=== PATIENT | male | born 1940 | race Caucasian/White ===

== ENCOUNTER 2016-12-30 18:12 | Observation (INO) | payer MEDICARE ==
[~2016-12-30] VITALS: Ht 188 cm; Wt 74.8 kg
[2016-12-30] MEDS: 0.9% Sodium Chloride 1,000 ML IV ONE (00:10)
[~2016-12-30 18:12] MED LIST: ASPI325T32 PO; BLUE500T PO; BRIM5DRO BOTH_EYES; CYAN100017 SL; LATA2.5D6 OP; LORA-305 PO; OMEP20TA24 PO; PREN1TAB25 PO; TAMS0.4C29 PO; [UNRECOGNIZED DRUG - CODE] TOP; [UNRECOGNIZED DRUG - OTHER] PO
[2016-12-30 18:26] VITALS: BP 124/62; PULSE 94; RESP 14; O2SAT 99
--- NOTE | 2016-12-30 18:39 | ED.REPORT ---
HPI-General Illness Date of Service Dec 30, 2016 ED Provider: Alfredo Cazares MD A 76 year old male with a history of neuropathy, hypertension, NSTEMI, anemia, bladder outlet obstruction, alcohol abuse, glaucoma and subdural hematoma drainage in 2011 due to fall-related head trauma is brought to the ED via EMS due to a ground level fall. The pt "drank three beers" today and states that he "stood up too fast," which resulted in the fall. He also felt very weak at that time and was too weak to stand after the fall. The pt denies hitting his head or loss of consciousness. He believes that his tetanus is up to date and denies recent head injury. His initial alcohol level in the ED is 0.239. Nursing Notes Stated Complaint: GENERALIZED WEAKNESS Chief Complaint: Multiple Trauma/Fall Nursing Notes Reviewed: Yes Allergies: Coded Allergies: No Known Allergies (Verified , 08/05/15) Scheduled ([elvia support]) 2 TABLET PO QAM Aspirin (Aspirin) 325 Mg Tablet 325 MG PO BID Blue-Green Algae (Spirulina) 500 Mg Tablet 500 MG PO DAILY Brimonidine Tartrate/Timolol (Combigan Eye Drops) 5 Ml Drops 1 DRP BOTH_EYES BID Cyanocobalamin (Vitamin B-12) (Vitamin B-12) 1,000 Mcg Tab.subl 1,000 MCG SL DAILY Latanoprost (Latanoprost) 2.5 Ml Drops 1 GTT OP HS Omeprazole Magnesium (Prilosec Otc) 20 Mg Tablet.dr 20 MG PO DAILY Vit#96/Ferrous Fum/FA ( Tablet) 1 Each Tablet 1 TABLET PO DAILY Tamsulosin ER (Tamsulosin ER) 0.4 Mg Cap.er.24h 0.4 MG PO DAILY Testosterone (Testim) 5 Gm Gel..gram. 5 GM TOP DAILY Scheduled PRN Lorazepam (Ativan) 2 Mg Tablet 2 MG PO TID PRN PRN Withdrawal Symptoms General Time Seen by MD: 18:39 Chief Complaint Other (Fall) Hx Obtained From: Patient, EMS Arrived By: Ambulance Sudden in Onset?: Yes Onset Occurred: 1 - 4 hours ago Symptom Duration: Since onset Recent Healthcare: No recent doctor visit, No recent hospitalization Similar Sx Previous: No Past Medical History Past Medical History Notes: PCP: Dr. Wilde Past Medical History Hypertension-but stopped meds, numbers have been low. Peripheral neuropathy Systemic yeast infection NSTEMI Neuropathy Enlarged prostate Subdural hematoma s/p fall related head trauma s/p bilateral subdural hematoma drainage at [facility] Mild gastritis, nodular gastric mucosa, gastric polyps and salmon-colored mucosa arising from the gastroesophageal junction suggestive of Caal's by EGD on 02/04/14. Two transverse colon polyps (removed with a hot snare), descending colon polyp (removed with a hot snare), two diminutive rectal polyps (removed with cold biopsy forceps), left-sided diverticulosis and large internal hemorrhoids by colonoscopy on 02/04/14. Glaucoma Bilat DVT s/p IVC filter placed on 03/25/14 acute severe sepsis secondary to UTI anemia septic encephalopathy bladder outlet obstruction Urinary candidiasis Past Surgical History Hiatal hernia repair, and repeat repair with mesh Inguinal hernia bilaterally repair Dental surgery Subdural hematoma s/p fall related head trauma s/p bilateral subdural hematoma drainage at [facility] Family History mom-peripheral neuropathy. Smoking History Former Smoker Social History Lives alone at home. Alcohol Use: 3-5 per day Drug Use: Denies drug use Ambulatory Status Walker Review of Systems fall Full Review of Systems Respiratory: Denies: Non-productive cough, Shortness of breath Cardiovascular: Denies: Chest pain GI: Denies: Abdominal pain, Vomiting Musculoskeletal: Denies: Back pain, Neck pain Skin: Denies Rash Neurologic: Denies: Change LOC Complete sys rev & neg: except as marked. Physical Exam Vital Signs Vital Signs Date Time Temp Pulse Resp B/P Pulse Ox O2 Delivery O2 Flow Rate FiO2 12/31/16 02:02 72 16 87/42 97 Room Air 12/31/16 00:30 82 16 114/78 100 Room Air 12/30/16 18:26 36.5 94 14 124/62 99 Room Air Initial VS: Reviewed General/Constitutional: Awake, Alert Head / Eyes: Atraumatic, Normocephalic, PERRL, EOMI ENT: Atraumatic, Airway patent, Mucous membranes moist Neck: Atraumatic, Supple, Full range of motion Respiratory / Chest: Atraumatic, Breath sounds NL, Breath sounds = bilat, No respiratory distress Cardiovascular: Heart rate NL, Regular rhythm, Heart sounds NL, No gallop, No murmurs, No rubs Abdomen: Atraumatic, Soft, Non-tender Back: Atraumatic, Full range of motion Upper Extremities Upper Extremity / MS: Full range of motion, Neurologic intact, Vascular intact small skin tear of right elbow good range of motion at the elbow Lower Extremity / Pelvis / MS: Full range of motion, Neurologic intact, Vascular intact blood between toes of the right foot partially avulsed first toenail no bony tenderness of right foot laceration on the flexor aspect of the flexor crease of the right fourth toe nail partially avulsed Skin: Color NL, No rash, Warm, Dry Neurologic: Oriented X3, Speech NL, No motor deficits, No sensory deficits Psychiatric: Affect NL, Mood NL Interpretation & Diagnostics Lab Results Interpretation Result Diagram: 12/31/16 0100 12/31/16 0100 Test 12/31/16 00:15 12/31/16 01:00 Urine Color Yellow (YELLOW) Urine Appearance Clear (CLEAR,HAZY) Urine pH 6.0 (5.0-8.0) Urine Specific Taylor <1.005 (1.003-1.035) Urine Protein Negativemg/dL (NEG,TRACE) Urine Glucose (UA) Negativemg/dL (NEGATIVE) Urine Ketones Negativemg/dL (NEGATIVE) Urine Occult Blood Trace (NEGATIVE) Urine Nitrite Negative (NEGATIVE) Urine Bilirubin Negative (NEGATIVE) Urine Urobilinogen Normalmg/dL (NORMAL) Urine Leukocyte Esterase Negative (NEGATIVE) Urine RBC 0-2/hpf (0-2) Urine WBC 0-5/hpf (0-5) Urine Epithelial Cells Few/hpf (NONE-MOD) Urine Crystals None seen (NONE SEEN) Urine Bacteria Few/hpf (NONE-FEW) Urine Hyaline Casts None/lpf (NONE) Urine Granular Casts None seen (NONE SEEN) Urine Waxy Casts None seen (NONE SEEN) Urine Red Blood Cell Casts None seen (NONE SEEN) Urine White Blood Cell Casts None seen (NONE SEEN) Urine Mucus None seen (None Seen) Urine Trichomonas None seen (NONE SEEN) Urine Yeast None (NONE SEEN) Urinalysis Comment None Urine Culture Reflexed Not indicated White Blood Count 4.4th/mm3 (3.8-10.1) Red Blood Count 3.79mil/mm3 (4.40-5.80) Hemoglobin 13.2g/dL (13.8-17.2) Hematocrit 36.4% (41.0-50.0) Mean Corpuscular Volume 96.0fL (81-100) Mean Corpuscular Hemoglobin 34.8pg (27.0-35.0) Mean Corpuscular Hemoglobin Concent 36.3% (32.0-37.0) Red Cell Distribution Width 14.0% (12.3-15.4) Platelet Count 130bil/L (150-400) Neutrophils (%) (Auto) 59.0% (40-74) Lymphocytes (%) (Auto) 24.8% (14-46) Monocytes (%) (Auto) 15.5% (4-12) Eosinophils (%) (Auto) 0.2% (0-5) Basophils (%) (Auto) 0.5% (0-3) Sodium Level 136mEq/L (134-144) Potassium Level 4.2mEq/L (3.5-5.2) Chloride Level 98mEq/L (97-108) Carbon Dioxide Level 22mmol/L (18-29) Blood Urea Nitrogen 3mg/dL (8-27) Creatinine 0.69mg/dL (0.76-1.27) Estimat Glomerular Filtration Rate 119mL/min (>59) Glucose Level 86mg/dL (60-99) Calcium Level 8.0mg/dL (8.5-10.1) Magnesium Level 1.8mg/dL (1.6-2.6) Total Bilirubin 0.9mg/dL (0.0-1.2) Aspartate Amino Transf (AST/SGOT) 36U/L (0-50) Alanine Aminotransferase (ALT/SGPT) 17U/L (0-44) Alkaline Phosphatase 83U/L (25-160) Total Creatine Kinase 352U/L (21-232) Troponin T 0.010ug/L (0.0-0.011) Total Protein 6.3g/dL (6.4-8.4) Albumin 2.9g/dL (3.4-5.0) Hold Paz Top Tube Received (Received) Alcohols 190mg/dL (0-10) Lab Results Interpretation: initial alcohol: 0.239 ECG Interpretation ECG Interpretation: normal sinus rhythm with a rate of 82 inferior infarct, old Time: 22:23 Interpreted by: ED physician X-Ray Chest Interpretation Chest Xray Interpretation: no acute findings Interpretation / Wet Read by: Wet read ED physician X-Ray Interpretation Xray Interpretation: IMPRESSION: No acute fracture. No osseous lesion. If clinical suspicion and/or symptoms persist, further assessment with repeat plainfilms, or advanced imaging (e.g., CT, MRI, or bone scan) may be helpful for further assessment. Dictated by: Serjio Magana M.D. on 12/30/2016 at 19:43 Approved by: Serjio Magana M.D. on 12/30/2016 at 19:43 X-Ray Ordered: Foot right Interpretation / Wet Read by: Interpret - Radiologist CT Head Interpretation Study: Head CT no contrast Interpretation / Wet Read by: Wet read ED physician NL CT Head Findings: No acute disease Procedures Laceration Management Laceration Management: partially avulsed nail is removed Time: 22:27 Procedure Performed by: ED physician Consent / Setup / Site Prep: Informed consent provided, Consent from patient , Time-out performed, Hand hygiene observed, Stand sterile technique Location of Wound: right fourth toe Wound Length: 1 cm Local Anesthesia: Lidocaine 1% Digital Block: Yes Digit Involved: 4th toe right Wound Preparation: Betadine Debridement: None Irrigation: Copious Foreign Body Explore / Removal: Explored for foreign body Repair Skin: ___ O (4), Nylon # Sutures - Skin: 4 Suture Technique: Simple Post-Procedure / Complications: Antibiotic oint applied, Dressing applied, No complications, Condition improved Re-Eval/Medical Decision Med Decision/Clinical Course 76-year-old male who is an active alcoholic. He presents complaining of a ground-level fall related to generalized weakness earlier today. No evidence of any head injury although I note a history of a previous craniotomy for intracranial hemorrhage. He is noted to have a small laceration on the right fourth toe which was sutured. The baseline of neuropathy involving his lower extremities so he is nearly a sensate in the lower extremities. Following repair of laceration and x-ray, ambulation was attempted the patient was unable. He does not have a fever or chest pain, do not find evidence for an acute infectious process, myocardial infarction, major electrolyte abnormality. He is intoxicated however he admits using alcohol chronically and his level of intoxication does not seem unusual for him and clinically he is alert and oriented with clear speech. Mild elevation of CK. We will admit to the hospitalist service for further evaluation and care, will need a physical therapy evaluation I suspect. No bony tenderness of the right foot but x-ray is ordered due to neuropathy. Time of Eval: 20:07 Patient Status: Condition improved Re-Evaluation/Progress Note: Pt rechecked, who is comfortable. The need for laceration management is discussed. Time of Eval: 22:27 Patient Status: Condition improved Re-Evaluation/Progress Note: Pt rechecked and laceration management is performed without complication. Consultation : Referral / Consult Name: Antonio Coy MD Consulted With: Hospitalist Call Returned at: 02:10 Special Population Paraprofessional: Agrees with eval, Agrees with plan, Accepts admit Note: Spoke with Dr. Coy, hospitalist, regarding pt's case. Dr. Coy agrees with the evaluation and agrees to admit the pt. Counseled Regarding: Diagnosis, Lab results, Need for admission Discharge & Departure Primary Impression: Generalized weakness Additional Impressions: Alcohol intoxication Complication of substance-induced condition: uncomplicated Qualified Code: F10.120 - Alcohol abuse with intoxication, uncomplicated Foot laceration Encounter type: initial encounter Laterality: right Qualified Code: S91.311A - Laceration without foreign body, right foot, initial encounter Disposition: ADMITTED TO HOSPITAL Discharge Condition All VS Reviewed: Yes Condition: Stable Referrals: Saqib Wheatley DO (PCP) Amada Wilde MD Scribe Attestation Portions of this note were transcribed by Ya Laureano. I, Dr. Cazares personally performed the history, physical exam and medical decision-making; I reviewed and confirmed the accuracy of the information in the transcribed note. copies to: Amada Wilde MD; Saqib Wheatley DO Slack, Donald L MD Dec 30, 2016 18:39 YA LAUREANO Dec 30, 2016 19:10
--- NOTE | 2016-12-30 19:45 | DRSVH ---
PROCEDURE: X-RAY RIGHT FOOT COMPLETE, MINIMUM THREE VIEWS ([id number]) INDICATIONS: R foot injury in fall TECHNIQUE: 3 views of the foot were acquired. COMPARISON: [facility], , FOOT 2V RIGHT, 04/01/2016, 19:01. FINDINGS: Bones: No fractures or dislocations. No suspicious bony lesions. Periarticular osteophyte formatio n and joint space narrowing at the first metatarsal phalangeal joint is present. Soft tissues: No tibiotalar joint effusion. Achilles tendon appears normal. IMPRESSION: No acute fracture. No osseous lesion. If clinical suspicion and/or symptoms persist, fur ther assessment with repeat plainfilms, or advanced imaging (e.g., CT, MRI, or bone scan) may be help ful for further assessment. Dictated by: Serjio Magana M.D. on 12/30/2016 at 19:43 Approved by: Serjio Magana M.D. on 12/30/2016 at 19:43
[2016-12-30] MEDS ORDERED: Ondansetron 2 mg/mL 2 mL Inj IV PRN (23:15)
[2016-12-31] VITALS (10 sets, daily range): BP systolic 87–132; BP diastolic 42–84; PULSE 66–84; RESP 12–18; O2SAT 96–100
[2016-12-31] MEDS: 0.9% Sodium Chloride 1,000 ML IV ONE (00:10)
[2016-12-31 00:42] LABS: APPEARANCE,URINE CLEAR (CLEAR,HAZY); COLOR,URINE YELLOW (YELLOW); OCCULT BLOOD,URINE TRACE (NEGATIVE); UROBILINOGEN,URINE NORMAL (NORMAL)
[2016-12-31 01:15] LABS: BASOPHILS % (AUTO) 0.5 % (0-3); EOSINOPHILS % (AUTO) 0.2 % (0-5); MONOCYTES % (AUTO) 15.5 % (4-12); Mean Corpuscular Hemoglobin 34.8 pg (27.0-35.0); Platelet Count 130 bil/L (150-400)
[2016-12-31 01:59] LABS: Magnesium 1.8 mg/dL (1.6-2.6); TROPONIN T 0.01 ug/L (0.0-0.011)
--- NOTE | 2016-12-31 02:49 | PCM.HPMED ---
Subjective Date of Service Dec 31, 2016 Primary Provider: Admitting Physician: Primary Care Physician: Saqib Wheatley DO Attending Physician: Chief Complaint: Weakness History of Present Illness: 76-year-old male with a history of neuropathy, hypertension, and STEMI, subdural hematoma in 2011, and alcohol abuse who presents emergency department due to ground-level fall with head trauma while inebriated. Patient states that this fall occurred after rising from seated position after he drank 3 beers. He felt lightheaded and dizzy immediately prior to the fall but states he did not lose consciousness. During this episode the patient also states that he felt profoundly weak, especially in his legs. He denies chest pain, racing heartbeat, shortness of breath, diplopia, abdominal pain, change in bowel or bladder habits. Patient states that he has been drinking a sixpack for a number of years but tonight only had 3 beers. He states he is no longer withdrawal has ever had a seizure. Emergency department the patient's alcohol level was 239, with lab work indicating a blood level of 190. 2011 the patient had a subdural hematoma related to head trauma secondary to a ground-level fall which had to be drained at [facility]. Review of Systems: Complete review of systems performed; pertinent positives and negatives per history of present illness, all other systems reviewed and are negative Allergies Coded Allergies: No Known Allergies (Verified , 08/05/15) Home Medications Aspirin (Aspirin) 325 Mg Tablet 325 MG PO BID Blue-Green Algae (Spirulina) 500 Mg Tablet 500 MG PO DAILY Brimonidine Tartrate/Timolol (Combigan Eye Drops) 5 Ml Drops 1 DRP BOTH_EYES BID Cyanocobalamin (Vitamin B-12) (Vitamin B-12) 1,000 Mcg Tab.subl 1,000 MCG SL DAILY Latanoprost (Latanoprost) 2.5 Ml Drops 1 GTT OP HS Omeprazole Magnesium (Prilosec Otc) 20 Mg Tablet.dr 20 MG PO DAILY Vit#96/Ferrous Fum/FA ( Tablet) 1 Each Tablet 1 TABLET PO DAILY Tamsulosin ER (Tamsulosin ER) 0.4 Mg Cap.er.24h 0.4 MG PO DAILY Testosterone (Testim) 5 Gm Gel..gram. 5 GM TOP DAILY Lorazepam (Ativan) 2 Mg Tablet 2 MG PO TID PRN PRN Withdrawal Symptoms PMH Hypertension-but stopped meds, numbers have been low. Peripheral neuropathy Systemic yeast infection NSTEMI Neuropathy Enlarged prostate Subdural hematoma s/p fall related head trauma s/p bilateral subdural hematoma drainage at [facility] Mild gastritis, nodular gastric mucosa, gastric polyps and salmon-colored mucosa arising from the gastroesophageal junction suggestive of Caal's by EGD on 02/04/14. Two transverse colon polyps (removed with a hot snare), descending colon polyp (removed with a hot snare), two diminutive rectal polyps (removed with cold biopsy forceps), left-sided diverticulosis and large internal hemorrhoids by colonoscopy on 02/04/14. Glaucoma Bilat DVT s/p IVC filter placed on 03/25/14 acute severe sepsis secondary to UTI anemia septic encephalopathy bladder outlet obstruction Urinary candidiasis Surgical History Hiatal hernia repair, and repeat repair with mesh Inguinal hernia bilaterally repair Dental surgery Subdural hematoma s/p fall related head trauma s/p bilateral drainage at [facility] Family History Father of presumed ND in his 60s and was alcoholic Mother after breaking both hips Social History Hx Alcohol Use: Yes (Current, long-standing alcohol abuse. 4-5 beers daily. Last use was today) Hx Substance Use: No Hx Tobacco Use: Yes Smoking Status: Former Smoker Living Arrangement: Alone Exam Vital Signs Vital Sign - Last Date Time Temp Pulse Resp B/P Pulse Ox O2 Delivery O2 Flow Rate FiO2 12/31/16 02:02 72 16 87/42 97 Room Air 12/30/16 18:26 36.5 Intake and Output 12/30/16 12/30/16 12/31/16 Cumulative From/Thru 15:00 23:00 07:00 12/30/16 18:26 - 12/31/16 00:10 Intake Total 1000 ml 1000 ml Balance 1000 ml 1000 ml Intake IV Total 1000 ml 1000 ml Exam General: Pleasant male, conversing well, no acute distress HEENT: PERRLA, EOMI, nonicteric, membranes moist Lymph: No lymphadenopathy Cardio: Regular rate and rhythm no murmurs rubs or gallops Respiratory: CTA bilaterally, no wheezes, no crackles Abdomen: Soft, positive bowel sounds, nontender, nondistended Extremities:Moderate edema in right ankle without erythema or pain; no edema on left, 5/5 strength, sensation intact Psych: Appropriate mood and affect Neuro: CN II through XII grossly intact, sensation intact throughout Skin: No rash, no pulmonary erythema, no telangiectasias Lab and Diagnostics Result Diagram: 12/31/16 01012/31/16 0100 X-Rays, CTs and MRIs Foot x-ray IMPRESSION: No acute fracture. No osseous lesion. If clinical suspicion and/or symptoms persist, further assessment with repeat plainfilms, or advanced imaging (e.g., CT, MRI, or bone scan) may be helpful for further assessment. Dictated by: Serjio Magana M.D. on 12/30/2016 at 19:43 Chest x-ray: Read pending Assessment & Plan 76-year-old male with a history of alcohol dependence who presents emergency department after suffering a ground-level fall after rising from a seated position. Ground-level fall with head trauma secondary to orthostatics and alcohol; present on admission; ongoing -Patient's had a history of orthostatic hypotension has been counseled and how to change physicians -Previous subdural hematoma from [facility] with head trauma -Patient drinks a sixpack of beer a day and only had 3 today with a blood alcohol level of 190 -CK of 352 -Brain CT currently pending -Neurologically intact -Nurse to perform Orthostatics -Neuro checks every 4 hours -Foot x-ray r/o fx Alcohol dependence; present admission; ongoing -Patient drinks sixpack of beer a day -Hypoalbuminemia but normal liver function tests -Banana bag and 100 mg thiamine -Monitor withdrawal and initiate see what appropriate -hatchery worker referral -It appears the patient has a standing lorazepam prescription in case of withdrawal Mild, likely chronic, anemia and thrombocytopenia; present on admission; ongoing -Likely due to alcohol induced hepatic injury or possibly bone marrow suppression although this less likely -Previously reported anemia suggesting chronic -B12/folate and iron studies Disposition: Patient is being admitted to inpatient status with expected length of stay greater than two midnights due to to severity of presentation, duration of treatment, and risks of adverse events disposition Pain Evaluation: Adequate Pain Control GI Prophylaxis: H2 robbie VTE Prophylaxis Indicated: Contraindicated VTE Mechanical Devices: Intermittant Pneumatic CD Resuscitation Status: CPR: Attempt Resuscitation Attending Statement The patient was seen and examined together with Dr. Tello on 12/31 and I agree with the history, exam and plan as outlined in the note above. Bruno Tello DO Dec 31, 2016 02:49 Antonio Coy MD Dec 31, 2016 19:34
[2016-12-31] MEDS ORDERED: Ondansetron 2 mg/mL 2 mL Inj IVPUSH PRN ×2 (03:45→04:20)
[2016-12-31] MEDS ORDERED: Alum-Mag Hydrox-Simeth 30 mL Suspension PO PRN ×2 (03:45→04:20)
[2016-12-31] MEDS ORDERED: Thiamine Inj 200 MG in Dextrose 5% 50 ML IV ONE (04:20)
[2016-12-31] MEDS ORDERED: Thiamine Inj 100 MG, Folic Acid Inj 1 MG, Magnesium Sulfate 50% Inj 2 GM, Multivitamins... IV ONE ×5 (04:20)
[2016-12-31] MEDS ORDERED: Polyethylene Glycol (PEG) 17 Gm Powder PO PRN (04:20)
[2016-12-31] MEDS ORDERED: LOPE-147 PO (05:16)
[2016-12-31] MEDS ORDERED: NAPR220C11 PO (05:16)
[2016-12-31] MEDS: 0.9% Sodium Chloride 1,000 ML IV SCH ×2 (05:28→18:23)
--- NOTE | 2016-12-31 06:24 | DRSVH ---
PROCEDURE: X-RAY CHEST ONE VIEW, PORTABLE ([id number]) INDICATIONS: 76-year-old male with generalized weakness for 2-3 days. TECHNIQUE: One view of the chest was acquired. COMPARISON: [facility], CR, CHEST 1 VIEW, 04/01/2016, 16:01. [facility], CR, CHEST 1 VIEW , 03/11/2016, 10:40. [facility], CR, XR CHEST 1VW (PORTABLE), 09/27/2015, 9:12. FINDINGS: Surgical changes and devices: None. Lungs and pleura: No pleural effusions or pneumothorax. Lungs are clear. Mediastinum: Mediastinal contours appear normal. Heart size is normal. There is aortic atheroscler osis. Bones and chest wall: No suspicious bony lesions. Overlying soft tissues appear unremarkable. IMPRESSION: No acute cardiopulmonary disease. Dictated by: Tae Remy M.D. on 12/31/2016 at 6:21 Approved by: Tae Remy M.D. on 12/31/2016 at 6:22
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
[2016-12-31 06:52] LABS: BASOPHILS % (AUTO) 0.5 % (0-3); EOSINOPHILS % (AUTO) 0.3 % (0-5); MONOCYTES % (AUTO) 15.3 % (4-12); Mean Corpuscular Hemoglobin 34.9 pg (27.0-35.0); Mean Corpuscular Volume 97.1 fL (81-100); NEUTROPHILS % (AUTO) 63.2 % (40-74); Platelet Count 125 bil/L (150-400)
--- NOTE | 2016-12-31 07:09 | DRSVH ---
PROCEDURE: CT BRAIN WITHOUT CONTRAST ([id number]) INDICATIONS: 76-year-old male with generalized weakness and prior head injury. TECHNIQUE: Noncontrast 4.5 mm thick angled axial sections acquired from the foramen magnum to the vertex, with c oronal reformats. COMPARISON: [facility], CT, CT BRAIN WO CON, 08/10/2015, 13:15. [facility], CT, CT BRAIN WO CON, 08/05/2015, 10:50. [facility], CT, CT BRAIN WO CON, 06/15/2015, 1:46. FINDINGS: Preliminary interpretation rendered by [facility]. Image quality: Excellent. CSF spaces: Basal cisterns are patent. No extra-axial fluid collections. The ventricles are symmet mali in size and shape. Brain: No intracranial bleeds or masses. There is mild cerebral volume loss for age, with resultant ventricular and sulcal prominence. There are mild periventricular and deep white matter chronic sma ll vessel ischemic changes. There is intracranial internal carotid artery atherosclerosis. Skull and face: Calvarium and visualized facial bones appear intact, without suspicious lesions. Farrukh ateral frontal calvarial rolan holes are again noted. Sinuses: Visualized sinuses and mastoids are clear. IMPRESSION: 1. No acute intracranial abnormalities. 2. Mild periventricular and deep white matter chronic small vessel ischemic change. No significant discrepancy with preliminary [facility] report. Dictated by: Tae Remy M.D. on 12/31/2016 at 7:02 Approved by: Tae Remy M.D. on 12/31/2016 at 7:05
[2016-12-31 08:06] LABS: Unsaturated Iron Binding < 16.0 ug/dL
--- NOTE | 2016-12-31 10:40 | NUR ---
Dressing change Dressing removed from R foot and changed. L foot cleaned and dressed. MD assessed, wound consult ordered. Pt tolerated well, reports decreased sensation bilaterally in feet. Pt educated regarding importance of wearing shoes whenever outside and to monitor plantar area of feet on a daily basis. Pt verbalized understanding. Call light in reach, will continue to monitor.
--- NOTE | 2016-12-31 16:00 | NUR ---
MICHAEL explained and signed. Copy of RODRIGUEZ given to pt.
--- NOTE | 2016-12-31 16:23 | NUR ---
Social Work-initial assessment/multidisciplinary rounds: Data:See initial assessment. Pt is a 76 y/o male who was admitted on 12/31/16 for generalized weakness per H&P. Pt's insurance is [facility] and PCP is Saqib Wheatley DO. EMR Reviewed. SW met with pt at bedside, SW role explained. Pt is alert and oriented x3. Pt resides at home in a RV where he remains independent with ADLS. Pt uses a fww at baseline and drives. Pt has no HH history, but has been to [facility]. Pt has no skilled nursing care insurance or VA benefits. SW discussed DPOA/ advanced directive, pt confirms he has the paperwork, but has not completed this. No concerns noted in morning rounds regarding pt's capacity for self care, per RN or MD.Pt may benefit from PT evaluation. SW provided pt with discharge planning checklist and encouraged pt to call with any questions, phone number provided. Pt reports that he may not be able to return to the RV park that he just moved into 2 days ago. SW asked pt where he had been prior to that RV park, pt confirms an RV park in [place]. SW asked if he could return to this park and pt feels like he would be able to. SW provided him with phone numbers for both RV carpenter to call. CD assessment completed( See alternative note). Pt states that he and his caregiver who has been residing with him for the last year got into an argument and she was arrested. Pt states he will pay for yellow cab to pick him up at discharge. SW will continue to follow. Assessment:Pt who is independent at baseline. Plan:Pt to discharge back to when medically stable via POV. CD assessment completed, Declining resources. Pt may benefit from PT evaluation prior to discharge. SW will continue to follow. NIRALI Basurto Addendum: 12/31/16 at 1628 by CARLOS OCAMPO Amended: Links added.
--- NOTE | 2016-12-31 16:28 | NUR ---
Social Work-CD assessment: Current Circumstances/Reason for Referral:Pt is a 76 y/o male who was admitted on 12/31/16 for generalized weakness per H&P. order received for CD assessment. SW met with pt at bedside to complete. History of Substance Use: Pt has been drinking a 6 pack of beer daily for over 30 years. Pt states he does not use any other substances. Pt occasionally will drink hard alcohol or wine, but mainly drinks beer. History of Treatment Programs: Pt has never been to treatment. History of Withdrawal Symptoms: shaking, vomiting Family History:Pt reports his father was an alcoholic History of Sobriety and Supports:Pt reports two different periods of sobriety. Once for 3 years and then once for 1.5 years. Pt states he made the decision to stop drinking and then started drinking again because he was bored. Pt is unable to identify any support in his life other than his friend Nisreen who recently just got arrested. Patients Perception of use: Pt does not believe that there are any problems from his drinking. Pt identifies himself as a social drinker and does not feel like he is an alcoholic. Pt states he drinks 6 beers over 12 hours and does not feel like he needs to drink and drinks slowly. Pt is not interested in any resources or stopping drinking at this time. Recommendations for referral and follow up: Pt to likely discharge back to . Pt is currently declining any CD resources and is not interested in stopping drinking. SW will continue to follow. NIRALI Basurto
--- NOTE | 2016-12-31 18:02 | NUR ---
Generalized weakness Pt rested quietly through out the day, no complains of increased pain, no falls. VSS, Pt very weak, unable to stand unassisted, tried to get up to used BSC and was not able to transfer self. CIWA = 4. IV fluids infusing. Pt concern that he was not able to work with PT today. Reassured pt bes t to gain strength before getting up with PT. Encouraged to consume adequate protein to allow for optimal healing and recovery. Pt verbalized understanding. Call light in reach, bed alarm in place.
[2017-01-01] VITALS (9 sets, daily range): BP systolic 114–148; BP diastolic 68–84; PULSE 60–85; RESP 16–18; O2SAT 98–99
[2017-01-01] MEDS: 0.9% Sodium Chloride 1,000 ML IV SCH ×2 (04:32→10:17)
--- NOTE | 2017-01-01 06:08 | NUR ---
NOC/Headache/Neck spasm pt is alert and oriented. No facial droop, or slurring of speech. Bilateral equal sap hana architect. Lower extremities are very weak and is very unsteady in getting up. Orthostatic VS unable to obtain due to safety concerns. Pt reports of neck spasm and headache which has been relieved with tylenol. Denies chest pain, sob, n/v or abd discomfort. IVF running as ordered. VSS and has been afebrile. Continuing care.
[2017-01-01 09:07] LABS: Vitamin B12 654 pg/mL (211-946)
[2017-01-01] MEDS: Thiamine Inj 100 MG in Dextrose 5% 50 ML IV SCH (10:17)
--- NOTE | 2017-01-01 11:04 | PCM.PNMED ---
Subjective Date of Service Jan 01, 2017 Subjective pt remained stable, out of WD, not agitated denied COX, reported very unsteady on standing, awaits PT eval Exam Vital Signs Vital Sign - Last Date Time Temp Pulse Resp B/P Pulse Ox O2 Delivery O2 Flow Rate FiO2 01/01/17 10:07 36.8 63 18 148/84 99 Room Air Intake and Output 12/31/16 12/31/16 01/01/17 Cumulative From/Thru 15:00 23:00 07:00 12/30/16 18:26 - 01/01/17 06:29 Intake Total 2634 ml 1860 ml 5494 ml Output Total 850 ml 350 ml 1200 ml Balance 1784 ml 1510 ml 4294 ml Intake Oral 711 ml 580 ml 1291 ml IV Total 1923 ml 1280 ml 4203 ml Output Urine Total 850 ml 350 ml 1200 ml # Bowel Movements 1 1 Exam NAD, comfortably laying down on the bed no JVD, MMM, no LAD RRR, nl s1, s2 no mrg CTAB, no w,c S,ND,NT,normoactive BS+ warm, no edema, pulses 2/2 IVs and Medications Medications Reviewed: Medications were reviewed in detail Lab and Diagnostics Result Diagram: 12/31/16 0620 01/01/17 0645 X-Rays, CTs and MRIs Foot x-ray IMPRESSION: No acute fracture. No osseous lesion. If clinical suspicion and/or symptoms persist, further assessment with repeat plainfilms, or advanced imaging (e.g., CT, MRI, or bone scan) may be helpful for further assessment. Dictated by: Serjio Magana M.D. on 12/30/2016 at 19:43 Chest x-ray: Read pending Assessment & Plan 76-year-old male with a history of alcohol dependence who presents emergency department after suffering a ground-level fall after rising from a seated position. Ground-level fall with head trauma secondary to orthostatics and alcohol; present on admission; ongoing, Patient's had a history of orthostatic hypotension has been counseled and how to change physicians, Previous subdural hematoma from GLF with head trauma. Patient drinks a sixpack of beer a day and only had 3 today with a blood alcohol level of 190. pt underwent brief course of WD, assessed for CD by SARA. Brain CT no acute findings -pt remained clinically stable, -awaits PT eval to opimize dispo left minor skin lacs on plantar surface at fifth toe, dressed by RN, FU with wound care upon d/c chronic, stable resolved Alcohol dependence; present admission; ongoing -CD assessment performed by SARA, Mild, likely chronic, anemia and thrombocytopenia; present on admission; ongoing -Likely due to alcohol induced hepatic injury or possibly bone marrow suppression although this less likely -Previously reported anemia suggesting chronic -B12/folate and iron studies Disposition: likely today or tomorrow based on PT eval GI Prophylaxis: H2 robbie VTE Mechanical Devices: Intermittant Pneumatic CD Resuscitation Status: CPR: Attempt Resuscitation Time spent 35min Wesly Flaherty MD Jan 01, 2017 11:04
--- NOTE | 2017-01-01 16:21 | NUR ---
FEET/PT/PLAN Patient dressing change on both feet, SW asked to have home health follow up at discharge. Wound care to evaluate Monday. PT in working with patient today stand at bedside, weakness due to inactivity, falls risk, CIWA 1. Plan, patient state he can move back into which is being moved to [place] today, concerns for self care, continued ETOH abuse, and wound foot care. Addendum: 01/01/17 at 1902 by KULDIP BOYD RN ORTHOSTATIC HYPO POSITIVE supine 157/80 HR 63, sitting 149/82, HR 63, standing 118/68.
--- NOTE | 2017-01-01 17:24 | NUR ---
Evaluation completed. Please go to "Notes" then click on "Assessments and Notes" (bottom left corner of screen). Then select appropriate discipline tab on top of screen.
[2017-01-02 00:45] VITALS: BP 105/61; PULSE 56; RESP 16; O2SAT 99
[2017-01-02] MEDS: 0.9% Sodium Chloride 1,000 ML IV SCH ×3 (01:27→21:18)
--- NOTE | 2017-01-02 05:10 | NUR ---
NOC/Headache Pt reports of having headache. Administered Tylenol PRN. HS meds administered as scheduled. IVF running as directed. Denies chest pain, sob, n/v or abd discomfort. Has been pleasant and cooperative with care. CIWA score of 4. Continuing to monitor.
--- NOTE | 2017-01-02 08:41 | PCM.PNMED ---
Subjective Date of Service Jan 02, 2017 Subjective pt was not withdrawling from Etoh, found to be very weak, PT recommended SNF pt agreed on SNF placement, was in [facility]. denied any other complaints, but often get emotional about his situation. Exam Vital Signs Vital Sign - Last Date Time Temp Pulse Resp B/P Pulse Ox O2 Delivery O2 Flow Rate FiO2 01/02/17 00:45 37.0 56 16 105/61 99 Room Air Intake and Output 01/01/17 01/01/17 01/02/17 Cumulative From/Thru 15:00 23:00 07:00 12/30/16 18:26 - 01/02/17 00:30 Intake Total 2208 ml 7702 ml Output Total 725 ml 1925 ml Balance 1483 ml 5777 ml Intake Oral 1218 ml 2509 ml IV Total 990 ml 5193 ml Output Urine Total 725 ml 1925 ml # Bowel Movements 1 2 Exam NAD, comfortably laying down on the bed no JVD, MMM, no LAD RRR, nl s1, s2 no mrg CTAB, no w,c S,ND,NT,normoactive BS+ warm, no edema, pulses 2/2 IVs and Medications Medications Reviewed: Medications were reviewed in detail Lab and Diagnostics Result Diagram: 12/31/16 0620 01/01/17 0645 X-Rays, CTs and MRIs Foot x-ray IMPRESSION: No acute fracture. No osseous lesion. If clinical suspicion and/or symptoms persist, further assessment with repeat plainfilms, or advanced imaging (e.g., CT, MRI, or bone scan) may be helpful for further assessment. Dictated by: Serjio Magana M.D. on 12/30/2016 at 19:43 Chest x-ray: Read pending Assessment & Plan 76-year-old male with a history of alcohol dependence who presents emergency department after suffering a ground-level fall after rising from a seated position. Ground-level fall with head trauma secondary to orthostatics and alcohol; present on admission; ongoing, Patient's had a history of orthostatic hypotension has been counseled and how to change physicians, Previous subdural hematoma from GLF with head trauma. Patient drinks a sixpack of beer a day and only had 3 today with a blood alcohol level of 190. pt underwent brief course of WD, assessed for CD by SW. Brain CT no acute findings -pt remained clinically stable, -continue PT left minor skin lacs on plantar surface at fifth toe, dressed by RN, awaits wound care eval today chronic, stable resolved Alcohol dependence; present admission; ongoing -CD assessment performed by SARA, Mild, likely chronic, anemia and thrombocytopenia; present on admission; ongoing -Likely due to alcohol induced hepatic injury or possibly bone marrow suppression although this less likely -Previously reported anemia suggesting chronic -B12/folate and iron studies Disposition: likely today or tomorrow to [facility] GI Prophylaxis: H2 robbie VTE Mechanical Devices: Intermittant Pneumatic CD Resuscitation Status: CPR: Attempt Resuscitation Time spent 35min Wesly Flaherty MD Jan 02, 2017 08:41
[2017-01-02] MEDS: Thiamine Inj 100 MG in Dextrose 5% 50 ML IV SCH (09:17)
[2017-01-02 09:18] VITALS: PULSE 87
[2017-01-02 10:05] VITALS: BP 123/75; PULSE 64; RESP 18; O2SAT 98
[2017-01-02 13:17] VITALS: BP 140/81; PULSE 91; RESP 18; O2SAT 99
--- NOTE | 2017-01-02 13:37 | NUR ---
Inpatient Wound Nurse Patient seen for wounds to BLE. R foot 4th toe dorsal sulcus noted clean and dry with intact sutures. No dressing required as no drainage is noted. L foot 2nd toe medial plane 1 cm L x 1 cm W laceration, dark red, dry, crusted, no drainage. L foot 3rd toe medial plane 2 cm L x 1 cm W laceration, dark red, dry, crusted, no drainage. Patient stated that he sustained these "a few days ago" walking in his motor home without socks and jammed his foot into something. He had no meaningful contribution to origin of these wounds or the wound on his plantar/medial surface L great toe which is noted with 1 cm L x 1 cm W intact crust, no drainage, no erythema. Patient stated that he had been receiving care at [facility] for this wound and was told that he no longer required care due to wound resolution. Although wound is closed it is at risk for reopening because it is a pressure point. This wound was covered with a bordered Mepilex cut in half. All other nails and skin are intact. Patient has obviously been negligent with foot care and requires nail trimming. He stated that when he is discharged to SNF, he will request nail care. If sutures in R foot 4th toe dorsal sulcus are not dissolvable, he should be seen at outpatient Wound Center. Patient was instructed to wear shoes at all times when out of bed.
[2017-01-02 20:25] VITALS: BP 144/87; PULSE 69; RESP 18; O2SAT 100
[2017-01-03 00:20] VITALS: BP 126/72; PULSE 61; RESP 18; O2SAT 97
--- NOTE | 2017-01-03 05:04 | NUR ---
PT ACTIVITY Pt has not been observed w/ OOB activity this shift. Pt has been using urinal independently in bed. Pt denies pain. Pt has watched TV and slept intermittently during the shift. Continue to monitor. Call light in reach. Bed alarm on. Intentional rounding.
[2017-01-03 05:15] VITALS: BP 119/69; PULSE 58; RESP 18; O2SAT 97
[2017-01-03] MEDS: 0.9% Sodium Chloride 1,000 ML IV SCH ×2 (07:27→12:04)
[2017-01-03] MEDS: Thiamine Inj 100 MG in Dextrose 5% 50 ML IV SCH (08:23)
--- NOTE | 2017-01-03 11:44 | NUR ---
POST HOSPITAL FOLLOW UP: Scheduled res clinic appointment for 01/04/17 check in at 10AM for 1010 appointment with and they are aware patient is needing Home Health follow up. Updated A[employer]ISCIENCE TECH[employer]OLOGY INSTRUCTOR
--- NOTE | 2017-01-03 11:58 | PCM.DIMED ---
Discharge Instructions Date of Service Jan 03, 2017 Dates of Hospitalization Dec 31, 2016 at 02:48 Discharge Diagnosis Discharge Diagnosis acute dx Ground-level fall with head trauma secondary to orthosis and alcohol abuse Diet Discharge Diet: No restrictions Activity Discharge Activity: Home Health Phyical Therapy Patient Instructions Patient Instructions You were hospitalized after fall and alcohol intoxication. You were recommended 24hour supervision given your unsteady gait, however, given your improvement, you were released to home with HH, Physical therapy. Please note that you were arranged to see new primary doctor tomorrow 01/04 at 10am. Please follow up accordingly Follow-up Provider: [facility] Follow-up with PCP in: 1 week Wesly Flaherty MD Jan 03, 2017 11:58
[2017-01-03 12:16] VITALS: BP 158/86; PULSE 79; RESP 18; O2SAT 99
--- NOTE | 2017-01-03 12:18 | NUR ---
Social Work-discharge: Data:EMR reviewed. Pt is on day 3 of hospitalization for generalized weakness and Alcohols withdrawal per H&P. Pt is medically stable for discharge. PT has cleared pt for home with HH services, recommending 24/7 supervision. order received for HH. SW followed up with pt to discuss, SW role explained. Pt states he will not have someone to stay with him in his motorhome, but he his two neighbors will check on him regularly and provide supervision. SW updated MD and MD agreeable to discharge pt. SW provided pt with HH choice list, pt has no agency preference,SW referred to rotating calendar and made referral to [facility] for PT, access given. SW updated Osorio Stevenson with [facility] of discharge and provided him with f2F and orders. PCP appointment arranged for tomorrow at 1000 information provided to the pt. SW arranged private pay taxi for pt to go back home today at 1300. Pt's friends to help pt move his motorhome to other RV park today. Pt confirms he has fww at home. Pt continues to decline CD resources. All updated and agreeable to plan. Assessment:Pt who would benefit from HH. Plan:Pt to discharge home today via private pay taxi. Pt has friends to provide supervision and check on him regularly at home. Referral made to [facility] for PT F2F and orders given. All updated and agreeable to plan. NIRALI Basurto
--- NOTE | 2017-01-03 13:12 | NUR ---
Discharge Pt d/cd home via yellow cab at 1305 by an aide on a wc. Pt denied pain. IV d/cd prior to leaving. All personal belongings left with pt. Discharge teaching provided, pt denied having questions. Emphasis made on f/u with Residency clinic on 01/04
--- NOTE | 2017-01-03 16:09 | PCM.DC.MED ---
Discharge Summary Date of Service Jan 03, 2017 Dates of Hospitalization Date of Hospital Admission Dec 31, 2016 at 02:48 Date of Discharge: Jan 03, 2017 Providers: Admitting Physician: Antonio Coy MD Primary Care Physician: Saqib Wheatley DO Attending Physician: Wesly Flaherty MD Diagnosis at Time of Discharge Diagnosis at Time of Discharge acute dx Ground-level fall with head trauma secondary to orthosis and alcohol abuse Procedures XRay, CTs & MRIs Foot x-ray IMPRESSION: No acute fracture. No osseous lesion. If clinical suspicion and/or symptoms persist, further assessment with repeat plainfilms, or advanced imaging (e.g., CT, MRI, or bone scan) may be helpful for further assessment. Dictated by: Serjio Magana M.D. on 12/30/2016 at 19:43 Chest x-ray: Read pending Brief History HPI obtained by Dr. Coy on 12.31 76-year-old male with a history of neuropathy, hypertension, and STEMI, subdural hematoma in 2011, and alcohol abuse who presents emergency department due to ground-level fall with head trauma while inebriated. Patient states that this fall occurred after rising from seated position after he drank 3 beers. He felt lightheaded and dizzy immediately prior to the fall but states he did not lose consciousness. During this episode the patient also states that he felt profoundly weak, especially in his legs. He denies chest pain, racing heartbeat, shortness of breath, diplopia, abdominal pain, change in bowel or bladder habits. Patient states that he has been drinking a sixpack for a number of years but tonight only had 3 beers. He states he is no longer withdrawal has ever had a seizure. Emergency department the patient's alcohol level was 239, with lab work indicating a blood level of 190. 2011 the patient had a subdural hematoma related to head trauma secondary to a ground-level fall which had to be drained at [facility]. Hospital Course 76-year-old male with a history of alcohol dependence who presents emergency department after suffering a ground-level fall after rising from a seated position. Patient was admitted after ground-level fall associated with altered drinking, orthostatic hypotension. Patient noted to have underlying chronic neuropathy, unsteady gait, which was also exacerbated by alcohol abuse. Patient underwent brief course of alcohol withdrawal. Otherwise patient did not have any signs of DT. Although PT recommend SNF initially, or home with 24 7 supervision, given his rapid progression, patient deemed safe to discharge to home with HH, PT, additional care was also encouraged from his neighbor(in park) in close proximity. Pt was strongly encouraged eoth cessation. Ground-level fall with head trauma secondary to orthostatics and alcohol; present on admission; ongoing, Patient's had a history of orthostatic hypotension has been counseled and how to change physicians, Previous subdural hematoma from GLF with head trauma. Patient drinks a sixpack of beer a day and only had 3 today with a blood alcohol level of 190. pt underwent brief course of WD, assessed for CD by SW. Brain CT no acute findings -pt remained clinically stable, -continue PT left minor skin lacs on plantar surface at fifth toe, dressed by RN, awaits wound care eval today chronic, stable resolved Alcohol dependence; present admission; ongoing -CD assessment performed by SW, Mild, likely chronic, anemia and thrombocytopenia; present on admission; ongoing -Likely due to alcohol induced hepatic injury or possibly bone marrow suppression although this less likely -Previously reported anemia suggesting chronic -B12/folate and iron studies Disposition: likely today or tomorrow to SNF Exam Vital Signs (Last) Date Time Temp Pulse Resp B/P Pulse Ox O2 Delivery O2 Flow Rate FiO2 01/03/17 12:59 Room Air 01/03/17 12:16 36.9 79 18 158/86 99 Exam Patient was examined on the day of discharge Test 12/31/16 00:15 12/31/16 01:00 12/31/16 06:20 01/01/17 06:45 Urine Color Yellow (YELLOW) Urine Appearance Clear (CLEAR,HAZY) Urine pH 6.0 (5.0-8.0) Urine Specific [place] <1.005 (1.003-1.035) Urine Protein Negativemg/dL (NEG,TRACE) Urine Glucose (UA) Negativemg/dL (NEGATIVE) Urine Ketones Negativemg/dL (NEGATIVE) Urine Occult Blood Trace (NEGATIVE) Urine Nitrite Negative (NEGATIVE) Urine Bilirubin Negative (NEGATIVE) Urine Urobilinogen Normalmg/dL (NORMAL) Urine Leukocyte Esterase Negative (NEGATIVE) Urine RBC 0-2/hpf (0-2) Urine WBC 0-5/hpf (0-5) Urine Epithelial Cells Few/hpf (NONE-MOD) Urine Crystals None seen (NONE SEEN) Urine Bacteria Few/hpf (NONE-FEW) Urine Hyaline Casts None/lpf (NONE) Urine Granular Casts None seen (NONE SEEN) Urine Waxy Casts None seen (NONE SEEN) Urine Red Blood Cell Casts None seen (NONE SEEN) Urine White Blood Cell Casts None seen (NONE SEEN) Urine Mucus None seen (None Seen) Urine Trichomonas None seen (NONE SEEN) Urine Yeast None (NONE SEEN) Urinalysis Comment None Urine Culture Reflexed Not indicated Total Creatine Kinase 352U/L (21-232) Troponin T 0.010ug/L (0.0-0.011) Hold Paz Top Tube Received (Received) Alcohols 190mg/dL (0-10) White Blood Count 3.7th/mm3 (3.8-10.1) Red Blood Count 3.50mil/mm3 (4.40-5.80) Hemoglobin 12.2g/dL (13.8-17.2) Hematocrit 34.0% (41.0-50.0) Mean Corpuscular Volume 97.1fL (81-100) Mean Corpuscular Hemoglobin 34.9pg (27.0-35.0) Mean Corpuscular Hemoglobin Concent 35.9% (32.0-37.0) Red Cell Distribution Width 14.2% (12.3-15.4) Platelet Count 125bil/L (150-400) Neutrophils (%) (Auto) 63.2% (40-74) Lymphocytes (%) (Auto) 20.7% (14-46) Monocytes (%) (Auto) 15.3% (4-12) Eosinophils (%) (Auto) 0.3% (0-5) Basophils (%) (Auto) 0.5% (0-3) Iron Level 146ug/dL (35-150) Total Iron Binding Capacity < 163ug/dL (250-450) Percent Iron Saturation < 90%sat (15-50) Unsaturated Iron Binding < 16.0ug/dL Vitamin B12 Level 654pg/mL (211-946) Folate > 19.9ng/mL (>3.0) Sodium Level 136mEq/L (134-144) Potassium Level 3.6mEq/L (3.5-5.2) Chloride Level 103mEq/L (97-108) Carbon Dioxide Level 20mmol/L (18-29) Blood Urea Nitrogen 3mg/dL (8-27) Creatinine 0.66mg/dL (0.76-1.27) Estimat Glomerular Filtration Rate 125mL/min (>59) Glucose Level 91mg/dL (60-99) Calcium Level 7.5mg/dL (8.5-10.1) Magnesium Level 2.0mg/dL (1.6-2.6) Total Bilirubin 2.1mg/dL (0.0-1.2) Aspartate Amino Transf (AST/SGOT) 26U/L (0-50) Alanine Aminotransferase (ALT/SGPT) 13U/L (0-44) Alkaline Phosphatase 76U/L (25-160) Total Protein 4.9g/dL (6.4-8.4) Albumin 2.3g/dL (3.4-5.0) Discharge Medications Discharge Medications Brimonidine Tartrate/Timolol (Combigan Eye Drops) 5 Ml Drops 1 DRP BOTH_EYES BID (Reported) Cyanocobalamin (Vitamin B-12) (Vitamin B-12) 1,000 Mcg Tab.subl 1,000 MCG SL DAILY (Reported) Latanoprost (Latanoprost) 2.5 Ml Drops 1 GTT OP HS (Reported) Omeprazole Magnesium (Prilosec Otc) 20 Mg Tablet.dr 20 MG PO DAILY (Reported) Vit#96/Ferrous Fum/FA ( Tablet) 1 Each Tablet 1 TABLET PO DAILY Prescribed by: ROBYN KEVIN, DO Miscellaneous Medications Loperamide HCl (Imodium A-D) 2 Mg Capsule 2 PO (Reported) Followup Plan Discharge Diet: No restrictions Discharge Activity: Home Health Phyical Therapy Patient Instructions You were hospitalized after fall and alcohol intoxication. You were recommended 24hour supervision given your unsteady gait, however, given your improvement, you were released to home with HH, Physical therapy. Please note that you were arranged to see new primary doctor tomorrow 01/04 at 10am. Please follow up accordingly Follow-up Provider: [facility] Res[facility] Follow-up with PCP in: 1 week Wesly Flaherty MD Jan 03, 2017 16:09
== END 2017-01-03 13:27 | disposition home or self-care (01) ==
LOC: SED 18:12 → EDBD 18:12 → EDUNIT# 18:12 → MPC 12-31 02:48
PROVIDERS: ADMIT Hospitalist; ATTEND Internal Medicine
DX: S91.311A Laceration without foreign body, right foot, initial encounter (principal); W18.30XA Fall on same level, unspecified, initial encounter; Y93.01 Activity, walking, marching and hiking; F10.120 Alcohol abuse with intoxication, uncomplicated; R53.1 Weakness; G62.9 Polyneuropathy, unspecified; I10 Essential (primary) hypertension; I21.4 Non-ST elevation (NSTEMI) myocardial infarction; N40.0 Benign prostatic hyperplasia without lower urinary tract symptoms; D64.9 Anemia, unspecified; Z86.718 Personal history of other venous thrombosis and embolism; Z87.891 Personal history of nicotine dependence; Z79.82 Long term (current) use of aspirin
CPT/HCPCS: 12001; 36415; 70450; 71010; 73630; 80053; 81000; 82075; 82550; 82607; 82746; 83540; 83550; 83735; 84484; 85025; 93005; 96361; 96374; 96376; 97116; 97162; 97602; 99285; G0378; G0480; G8978; G8979; J3475; J7030